=== PATIENT | male | born 1995 ===

== ENCOUNTER 2017-10-27 10:18 | Emergency (ER) | payer OTHER ==
[~2017-10-27] VITALS: Ht 172.7 cm; Wt 115.7 kg
[~2017-10-27 10:18] MED LIST: BACTROBAN OINT22 GM TP; CEFADROXIL500 MG PO; KETO10TA2 PO
== END 2017-10-27 12:58 | disposition home or self-care (01) ==
LOC: ER 10:18
DX: S93.491A Sprain of other ligament of right ankle, initial encounter (principal); X50.0XXA Overexertion from strenuous movement or load, initial encounter; Y93.67 Activity, basketball; Y92.89 Other specified places as the place of occurrence of the external cause; Y99.8 Other external cause status

== ENCOUNTER 2018-04-01 18:45 | Emergency (ER) | payer OTHER ==
[~2018-04-01] VITALS: Ht 172.7 cm; Wt 104.3 kg
== END 2018-04-01 21:29 | disposition home or self-care (01) ==
LOC: ER 18:45
DX: S80.212A Abrasion, left knee, initial encounter (principal); S80.211A Abrasion, right knee, initial encounter; S50.312A Abrasion of left elbow, initial encounter; S50.311A Abrasion of right elbow, initial encounter; S30.811A Abrasion of abdominal wall, initial encounter; S99.821A Other specified injuries of right foot, initial encounter; V18.0XXA Pedal cycle driver injured in noncollision transport accident in nontraffic accident, initial encounter; Y93.55 Activity, bike riding; Y92.018 Other place in single-family (private) house as the place of occurrence of the external cause; Y99.8 Other external cause status